=== PATIENT | male | born 1990 | race African-American/Black ===

== ENCOUNTER → 2019-03-12 | Day surgery (SDC) | payer OTHER ==
[~2019-03-12] VITALS: Ht 180.3 cm; Wt 81.2 kg
[~2019-03-12] MED LIST: BUPIVAC MPF-EPI 0.5%-1:200000 30 ML VIAL. ONE; DEXAMETHASONE SOD PHOS 4 MG/ML VIAL ONE; FLUO20CA8 PO; HYDROmorphone 2 MG/ML VIAL IV PRN; IV RINGERS,LACTATED 1000ML 1,000 ML IV SCH; LIDOCAINE 1% PF 2 ML VIAL. ID PRN; LIDOCAINE 2% PF 5 ML VIAL. ONE; MIDAZOLAM HCL/PF 2 MG/2 ML VIAL. ONE; MORPHINE SULFATE 2 MG/ML VIAL. IV PRN; OMEP20CA10 PO; ONDANSETRON PF 4 MG/2 ML VIAL. IV PRN; ONDANSETRON PF 4 MG/2 ML VIAL. ONE; PRAZ1CAP2 PO; PROCHLORPERAZINE 10 MG/2 ML VIAL. IV PRN; PROPOFOL 20 ML IV ONE; SEVOFLURANE 61 TO 120 MINUTES. IH ONE; TRAZ-118 PO; ceFAZolin 2GM PREMIX 2 GM/50 ML BAG IV ONE; fentaNYL PF VIAL 100 MCG/2 ML VIAL IV PRN; fentaNYL PF VIAL 100 MCG/2 ML VIAL ONE
--- NOTE | 2019-03-12 08:34 | EKG ---
[facility] [address] [place] [address] Test Date: 2019-03-12 Test Time: 08:26:36 Pat Name: JANETH RAMSEY Department: Room: Gender: M [employer]: : 1990 Requested By: JAIME MATIAS Order Number: [id number] Reading MD: Chin Boo Measurements Intervals [place] Rate: 46 P: -22 GA: 138 QRS: 48 QRSD: 76 T: 27 QT: 402 QTc: 356 Interpretive Statements SINUS BRADYCARDIA NONSPECIFIC ST-T WAVE CHANGES. Electronically Signed On 03-12-2019 9:38:54 CDT by Chin Boo
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
--- NOTE | 2019-03-12 10:07 | DISCH ---
DISCHARGE INSTRUCTIONS Condition on Discharge Condition on Discharge: Stable Activity After Discharge Activity Instructions for Disc: Activity as tolerated, Avoid exertion Lifting Instructions after Dis: No heavy lifting Diet after Discharge Diet after Discharge: Regular Wound Incision Care Wound/Incision Care: Ice to area for comfort Other wound/incision instructi: february Follow-Up Follow Up With: Walter two weeks ZEKE VALENCIA MD March 12, 2019 10:07
--- NOTE | 2019-03-12 10:12 | PDOC ---
BRIEF OPERATIVE NOTE Date: March 12, 2019 Pre-Op Diagnosis left inguinal hernia Post-Op Diagnosis same, indirect Procedure Performed repair with mesh Surgeon Walter [employer] Supervisor Elizabeth ARMENDARIZ Anesthesia Type: General Blood Loss 5cc IV Fluid 450cc Specimens Obtained none Findings indirect hernia sack, intact floor Complications none Operative Note # [id number] ZEKE VALENCIA MD March 12, 2019 10:12
--- NOTE | 2019-03-12 10:23 | OP ---
DATE OF SURGERY: 03/12/2019 PREOPERATIVE DIAGNOSIS: Left inguinal hernia. POSTOPERATIVE DIAGNOSIS: Left inguinal hernia, indirect. PROCEDURE: Repair with mesh. SURGEON: Kavon Valencia MD FIELD DIRECTOR: MARCELLO Salinas ANESTHESIA: General LMA. ESTIMATED BLOOD LOSS: 5. INTRAVENOUS: 450. INDICATIONS: The patient is a 28-year-old male with left inguinal fullness and pain. DESCRIPTION OF PROCEDURE: The patient was brought to the Operating Suite, given general LMA and the left groin prepped and draped in usual sterile fashion. A 0.5% Marcaine with epinephrine was infiltrated along the incision line. Incision made and dissection carried down to the external oblique fascia. Bleeders were cauterized or tied as identified. The fascia was opened in the direction of its fibers, extended through the external ring. Cord was swept off the pubis. Line [place] drain placed around it and dissection carried back to the internal ring where an indirect hernia sac was identified, skeletonized and reduced. This was held in reduction with a medium plug of Phasix mesh, tacked with 2-0 PDS, taking care to avoid injury to adjacent vessels. A keyhole patch was then fashioned and placed over the floor of the canal. The slit closed with a single 2-0 PDS stitch. When hemostasis was present and a correct sponge count obtained, the cord was returned to its normal anatomical position, and the external oblique fascia was closed with a running fashion with 3-0 Vicryl. Subcutaneous approximated with 3-0 Vicryl, skin closed with a subcuticular 4-0 Monocryl. Steri-Strips and sterile dressing were applied. The patient was awakened from his anesthetic and taken to the recovery room in satisfactory condition. KAVON VALENCIA MD DR: GIULIANO/chey JOB#: [id number] / [id number]
[2019-03-12 10:45] VITALS: BP 118/83
== END | disposition home or self-care (01) ==
LOC: SURG 07:58 → EEVIPCON 10:00
PROVIDERS: ATTEND Surgery
DX: K40.90 Unilateral inguinal hernia, without obstruction or gangrene, not specified as recurrent (principal); K21.9 Gastro-esophageal reflux disease without esophagitis; F41.9 Anxiety disorder, unspecified; Z98.890 Other specified postprocedural states
CPT/HCPCS: 49505; 93005; A7015; C1781; J0696; J1100; J2001; J2250; J2405; J2704; J3010; J3490